=== PATIENT | female | born 1950 | race Caucasian/White ===

== ENCOUNTER 2018-03-30 19:59 | Emergency (ER) | payer OTHER ==
[~2018-03-30] VITALS: Ht 162.6 cm; Wt 68.0 kg
[~2018-03-30 19:59] MED LIST: AMITRIPTYLINE H10 M3 PO; ASPIR 8181 MG PO; EFFEXOR 5050 MG/1 T1 PO; LISINOPRIL10 MG PO; PREDNISONE 20 M20 MG PO; TESSALON PERLE100 MG PO; TOPROL XL25 MG PO; VENTOLIN HFA 1818 GM INH
[2018-03-30 20:09] VITALS: BP 131/83
[2018-03-30] MEDS ORDERED: LIPITOR 20 MG T20 M1 PO (20:17)
[2018-03-30] MEDS ORDERED: CYMBALTA60 MG PO (20:18)
[2018-03-30] MEDS ORDERED: OMEPRAZOLE 20 M20 M1 PO (20:18)
[2018-03-30] MEDS ORDERED: TYLENOL EXTRA500 MG PO (20:19)
[2018-03-30] MEDS ORDERED: NAPROSYN500 MG PO (20:54)
[2018-03-30] MEDS ORDERED: LIDOCAINE1 EACH TRANSDERM (20:54)
[2018-03-30] MEDS ORDERED: TESSALON PERLE100 MG PO (20:54)
[2018-03-30] MEDS ORDERED: VENTOLIN HFA 1818 GM INH (20:55)
== END 2018-03-30 21:06 | disposition home or self-care (01) ==
LOC: ER 19:59
DX: J44.9 Chronic obstructive pulmonary disease, unspecified (principal); I10 Essential (primary) hypertension; Z85.3 Personal history of malignant neoplasm of breast; F17.210 Nicotine dependence, cigarettes, uncomplicated; Z88.8 Allergy status to other drugs, medicaments and biological substances